=== PATIENT | male | born 1990 | race Caucasian/White ===

== ENCOUNTER 2018-11-08 07:04 | Emergency (ER) | payer MEDICAID, OTHER ==
[~2018-11-08] VITALS: Ht 185.4 cm; Wt 63.6 kg
[2018-11-08 07:11] VITALS: BP 145/97
[2018-11-08] MEDS ORDERED: ACET-3067 PO (07:48)
== END 2018-11-08 08:02 | disposition home or self-care (01) ==
LOC: ER 07:05 → EDSEX 07:05 → ER 08:02
DX: M25.511 Pain in right shoulder (principal); X50.1XXA Overexertion from prolonged static or awkward postures, initial encounter; Y93.89 Activity, other specified; Y92.89 Other specified places as the place of occurrence of the external cause; Y99.9 Unspecified external cause status
CPT/HCPCS: 73030; 99283